=== PATIENT | female | born 1975 | race American Indian/Alaskan Native ===

== ENCOUNTER 2021-02-03 13:36 | Emergency (ER) | payer SELFPAY ==
[2021-02-03 15:19] VITALS: BP 149/80
[2021-02-03 18:02] LABS: Basophils % (Auto) 0.4 % (0.0-1.8); Eosinophils # (Auto) 0.1 K/mm3 (0.0-0.4); Eosinophils % (Auto) 0.9 % (0.0-4.3); Hematocrit 27.4 % (30.3-42.9); Hemoglobin 8.5 gm/dl (10.1-14.3); Lymphocytes % (Auto) 17.1 % (13.4-35.0); Mean Corpuscular HGB Conc 31 % (30-34); Monocytes # (Auto) 0.8 K/mm3 (0.0-0.8); Platelet Count 329 K/mm3 (140-440); Red Blood Count 4.23 M/mm3 (3.65-5.03); Red Cell Distribution Width 18.2 % (13.2-15.2)
[2021-02-03 18:04] LABS: Mean Corpuscular Volume 65 fl (79-97)
[2021-02-03 18:10] LABS: Mucus,Urine FEW /HPF
[2021-02-03 18:17] LABS: Alanine Aminotransferase 14 units/L (7-56); Albumin 4.1 g/dL (3.9-5); Blood Urea Nitrogen 6 mg/dL (7-17); Hemolysis Index 0
[2021-02-03 18:18] LABS: BUN/Creatinine Ratio 10
[2021-02-03 18:28] LABS: Bilirubin,Urine NEG (Negative); Blood,Urine MOD (Negative); Color,Urine Yellow (Yellow); Protein,Urine <15 mg/dL mg/dL (Negative); Urobilinogen,Urine < 2.0 mg/dL (<2.0)
--- NOTE | 2021-02-03 18:28 | Emergency Department Report ---
ED General Adult HPI - General Chief complaint: Vaginal Bleeding Stated complaint: ABD PAIN/HEAVY BLEEDING Time Seen by Provider: 02/03/21 17:04 Source: patient Mode of arrival: Ambulatory Limitations: No Limitations - History of Present Illness Initial comments: Patient is a 45-year-old female presents emergency room with complaints of heavy vaginal bleeding. She states that her regular menstrual cycle began on 01/29/2021. She states a couple days ago she began to have heavy bleeding and passing clots. She states that she is having to change every 2 hours. She states that she has lower abdominal cramping and sharp pains. She states that she has a history of heavy menstrual cycles and previously had an ablation. She states that she last saw her [employer] who advised her that her cycle irregularities were due to "hormonal surge." She denies any other past medical history. She has an allergy to Augmentin. Her last menstrual cycle prior to this was January 02, 2021. She states that her menstrual cycles have become progressively more painful and had heavy bleeding. She denies any history of hypertension, CAD, DVT, PE, smoking. - Related Data Previous Rx's Medication Instructions Recorded Last Taken Type Docusate Sodium [Colace] 100 mg PO BID #60 capsule 02/03/21 Unknown Rx Ferrous Sulfate [Ferrous Sulfate 324 mg PO DAILY #30 tablet. 02/03/21 Unknown Rx 324 MG] Naproxen [EC-Naprosyn] 500 mg PO BID PRN #14 tablet. 02/03/21 Unknown Rx medroxyPROGESTERone ACETATE 10 mg PO QDAY 10 Days #10 tablet 02/03/21 Unknown Rx [Provera] traMADoL [Ultram 50 MG tab] 50 mg PO Q6HR PRN #7 tablet 02/03/21 Unknown Rx Allergies Allergy/AdvReac Type Severity Reaction Status Date / Time No Known Allergies Allergy Unverified 02/03/21 15:19 ED Review of Systems ROS: Stated complaint: ABD PAIN/HEAVY BLEEDING Other details as noted in HPI Comment: All other systems reviewed and negative ED Past Medical Hx - Past Medical History Previous Medical History?: Yes Additional medical history: HEAVY PERIODS - Surgical History Past Surgical History?: Yes Additional Surgical History: ABLASIONS - Medications Home Medications: Home Medications Medication Instructions Recorded Confirmed Last Taken Type Docusate Sodium [Colace] 100 mg PO BID #60 capsule 02/03/21 Unknown Rx Ferrous Sulfate [Ferrous Sulfate 324 mg PO DAILY #30 tablet. 02/03/21 Unknown Rx 324 MG] Naproxen [EC-Naprosyn] 500 mg PO BID PRN #14 tablet. 02/03/21 Unknown Rx medroxyPROGESTERone ACETATE 10 mg PO QDAY 10 Days #10 tablet 02/03/21 Unknown Rx [Provera] traMADoL [Ultram 50 MG tab] 50 mg PO Q6HR PRN #7 tablet 02/03/21 Unknown Rx ED Physical Exam - General Limitations: No Limitations General appearance: alert, in no apparent distress - Head Head exam: Present: atraumatic, normocephalic - Eye Eye exam: Present: normal appearance - ENT ENT exam: Present: mucous membranes moist - Respiratory Respiratory exam: Present: normal lung sounds bilaterally. Absent: respiratory distress, wheezes, rales, rhonchi, stridor, chest wall tenderness, accessory muscle use, decreased breath sounds, prolonged expiratory - Cardiovascular Cardiovascular Exam: Present: regular rate, normal rhythm, normal heart sounds. Absent: systolic murmur, diastolic murmur, rubs, gallop - GI/Abdominal GI/Abdominal exam: Present: soft, tenderness (suprapubic ), normal bowel sounds. Absent: distended, guarding, rebound, rigid - Neurological Exam Neurological exam: Present: alert, oriented X3 - Psychiatric Psychiatric exam: Present: normal affect, normal mood - Skin Skin exam: Present: warm, dry, intact ED Course Vital Signs 02/03/21 15:15 Temperature 98.2 F Pulse Rate 82 Respiratory 18 Rate Blood Pressure 149/80 [Right] O2 Sat by Pulse 100 Oximetry ED Medical Decision Making - Lab Data Result diagrams: 02/03/21 17:36 02/03/21 17:36 Lab Results 02/03/21 02/03/21 02/03/21 Range/Units 17:36 17:36 17:36 WBC 11.6 H (4.5-11.0) K/mm3 RBC 4.23 (3.65-5.03) M/mm3 Hgb 8.5 L (10.1-14.3) gm/dl Hct 27.4 L (30.3-42.9) % MCV 65 L (79-97) fl MCH 20 L (28-32) pg MCHC 31 (30-34) % RDW 18.2 H (13.2-15.2) % Plt Count 329 (140-440) K/mm3 Lymph % (Auto) 17.1 (13.4-35.0) % Lamb % (Auto) 7.0 (0.0-7.3) % Eos % (Auto) 0.9 (0.0-4.3) % Baso % (Auto) 0.4 (0.0-1.8) % Lymph # (Auto) 2.0 (1.2-5.4) K/mm3 Lamb # (Auto) 0.8 (0.0-0.8) K/mm3 Eos # (Auto) 0.1 (0.0-0.4) K/mm3 Baso # (Auto) 0.0 (0.0-0.1) K/mm3 Seg Neutrophils % 74.6 H (40.0-70.0) % Seg Neutrophils # 8.7 H (1.8-7.7) K/mm3 Sodium 139 (137-145) mmol/L Potassium 3.4 L (3.6-5.0) mmol/L Chloride 101.1 (98-107) mmol/L Carbon Dioxide 26 (22-30) mmol/L Anion Gap 15 mmol/L BUN 6 L (7-17) mg/dL Creatinine 0.6 (0.6-1.2) mg/dL Estimated GFR > 60 ml/min BUN/Creatinine Ratio 10 % Glucose 89 (65-100) mg/dL Calcium 9.0 (8.4-10.2) mg/dL Total Bilirubin 0.40 (0.1-1.2) mg/dL AST 17 (5-40) units/L ALT 14 (7-56) units/L Alkaline Phosphatase 62 (35-129) units/L Total Protein 7.6 (6.3-8.2) g/dL Albumin 4.1 (3.9-5) g/dL Albumin/Globulin Ratio 1.2 % HCG, Quant < 2 (0-4) mIU/mL Urine WBC (Auto) (0.0-6.0) /HPF Urine RBC (Auto) (0.0-6.0) /HPF U Epithel Cells (Auto) (0-13.0) /HPF Urine Mucus /HPF 02/03/21 Range/Units 17:49 WBC (4.5-11.0) K/mm3 RBC (3.65-5.03) M/mm3 Hgb (10.1-14.3) gm/dl Hct (30.3-42.9) % MCV (79-97) fl MCH (28-32) pg MCHC (30-34) % RDW (13.2-15.2) % Plt Count (140-440) K/mm3 Lymph % (Auto) (13.4-35.0) % Lamb % (Auto) (0.0-7.3) % Eos % (Auto) (0.0-4.3) % Baso % (Auto) (0.0-1.8) % Lymph # (Auto) (1.2-5.4) K/mm3 Lamb # (Auto) (0.0-0.8) K/mm3 Eos # (Auto) (0.0-0.4) K/mm3 Baso # (Auto) (0.0-0.1) K/mm3 Seg Neutrophils % (40.0-70.0) % Seg Neutrophils # (1.8-7.7) K/mm3 Sodium (137-145) mmol/L Potassium (3.6-5.0) mmol/L Chloride (98-107) mmol/L Carbon Dioxide (22-30) mmol/L Anion Gap mmol/L BUN (7-17) mg/dL Creatinine (0.6-1.2) mg/dL Estimated GFR ml/min BUN/Creatinine Ratio % Glucose (65-100) mg/dL Calcium (8.4-10.2) mg/dL Total Bilirubin (0.1-1.2) mg/dL AST (5-40) units/L ALT (7-56) units/L Alkaline Phosphatase (35-129) units/L Total Protein (6.3-8.2) g/dL Albumin (3.9-5) g/dL Albumin/Globulin Ratio % HCG, Quant (0-4) mIU/mL Urine WBC (Auto) 2.0 (0.0-6.0) /HPF Urine RBC (Auto) 71.0 (0.0-6.0) /HPF U Epithel Cells (Auto) 1.0 (0-13.0) /HPF Urine Mucus Few /HPF - Medical Decision Making Patient is a 45-year-old female presents emergency room with complaints of heavy vaginal bleeding. She states that her regular menstrual cycle began on 01/29/2021. She states a couple days ago she began to have heavy bleeding and passing clots. She states that she is having to change every 2 hours. She states that she has lower abdominal cramping and sharp pains. She states that she has a history of heavy menstrual cycles and previously had an ablation. She states that she last saw her [employer] who advised her that her cycle irregularities were due to "hormonal surge." She denies any other past medical history. She has an allergy to Augmentin. Her last menstrual cycle prior to this was January 02, 2021. She states that her menstrual cycles have become progressively more painful and had heavy bleeding. She denies any history of hypertension, CAD, DVT, PE, smoking. VSS. On exam suprapubic abdominal tenderness, no guarding, no rebound, no rigidity, normal bowel sounds. Labs with a hemoglobin of 8.5. UA without evidence of UTI. Patient has microcytic anemia likely secondary to heavy menstrual cycles. Discussed Provera treatment with patient, she states that she would like treatment, she does not have any contra indications. Advised patient Please take medication as prescribed. Do not drive or operate machinery while taking severe pain medication. Increase your water intake. Increase your fiber intake. Follow-up with your primary care doctor. Follow-up with [facility]. Return to emergency room for any new or worsening symptoms. Critical care attestation.: If time is entered above; I have spent that time in minutes in the direct care of this critically ill patient, excluding procedure time. ED Disposition Clinical Impression: Dysmenorrhea Menorrhagia Qualifiers: Menorrhagia type: with regular cycle Qualified Code(s): N92.0 - Excessive and frequent menstruation with regular cycle Anemia Qualifiers: Anemia type: iron deficiency Iron deficiency anemia type: chronic blood loss Qualified Code(s): D50.0 - Iron deficiency anemia secondary to blood loss (chronic) Disposition: DC-01 TO HOME OR SELFCARE Is pt being admited?: No Does the pt Need Aspirin: No Condition: Stable Instructions: Abnormal Uterine Bleeding Additional Instructions: Please take medication as prescribed. Do not drive or operate machinery while taking severe pain medication. Increase your water intake. Increase your fiber intake. Follow-up with your primary care doctor. Follow-up with [facility]. Return to emergency room for any new or worsening symptoms. Prescriptions: Docusate Sodium [Colace] 100 mg PO BID #60 capsule Naproxen [EC-Naprosyn] 500 mg PO BID PRN #14 tablet. PRN Reason: pain Ferrous Sulfate [Ferrous Sulfate 324 MG] 324 mg PO DAILY #30 tablet. medroxyPROGESTERone ACETATE [Provera] 10 mg PO QDAY 10 Days #10 tablet traMADoL [Ultram 50 MG tab] 50 mg PO Q6HR PRN #7 tablet PRN Reason: Pain , Severe (7-10) Referrals: [facility] [Other] - 2-[address] MD [Staff Physician] - 2-3 Days Time of Disposition: 18:27 Print Language: NEPALI
== END 2021-02-03 18:46 | disposition home or self-care (01) ==
LOC: ED 13:36
DX: N94.6 Dysmenorrhea, unspecified (principal); N92.0 Excessive and frequent menstruation with regular cycle; D64.9 Anemia, unspecified; Z79.899 Other long term (current) drug therapy; Z98.890 Other specified postprocedural states
CPT/HCPCS: 36415; 80053; 81001; 84702; 85025